=== PATIENT | male | born 1955 | race Native Hawaiian/Other Pacific Islander ===

== ENCOUNTER 2023-10-13 09:44 | Day surgery (SDC) | payer OTHER, BC ==
[~2023-10-13] VITALS: Ht 165.1 cm; Wt 63.5 kg
[~2023-10-13 09:44] MED LIST: DEXMEDETOMIDINE HCL IN SODIUM 4 MCG/ML INJ IV ONE
[2023-10-13] MEDS ORDERED: LACTATED RINGER'S 1,000 ML IV ONE (11:04)
[2023-10-13] MEDS ORDERED: PROPOFOL 10MG/ML 20ML INJ IV ONE (16:11)
== END 2023-10-13 13:00 | disposition home or self-care (01) ==
LOC: OR 09:44
PROVIDERS: ATTEND Internal Medicine Gastroenterology
DX: K57.90 Diverticulosis of intestine, part unspecified, without perforation or abscess without bleeding (principal); K64.8 Other hemorrhoids; Z12.11 Encounter for screening for malignant neoplasm of colon
CPT/HCPCS: J2704; J7120